=== PATIENT | male | born 1990 | race Caucasian/White ===

== ENCOUNTER 2019-08-07 12:45 | Emergency (ER) | payer BC ==
[2019-08-07 12:50] VITALS: RESP 18; TEMP 99.1
[2019-08-07] MEDS ORDERED: GELATIN SPONGE,ABSORB (LARGE) 1 EACH SPONGE TOPICAL STA (13:33)
--- NOTE | 2019-08-07 14:08 | ED ---
Wound/Laceration HPI - General Chief Complaint: Wound/Laceration Stated Complaint: middle finger tip lac Time Seen by Provider: 08/07/19 13:22 Source: patient Mode of arrival: ambulatory Limitations: no limitations - History of Present Illness Initial Comments: Patient is a 28-year-old male presenting to emergency Department with complaints of a laceration to the tip of his right middle finger. Patient states he was cutting up some cucumbers when he slipped and cut the tip of his finger. Patient's tetanus vaccine is up-to-date. Bleeding is controlled at this time with a bandage. He has no other complaints at this time. Review of Systems ROS Statement: Those systems with pertinent positive or pertinent negative responses have been documented in the HPI. ROS Other: All systems not noted in ROS Statement are negative. Past Medical History Past Medical History: No Reported History History of Any Multi-Drug Resistant Organisms: None Reported Past Surgical History: No Surgical Hx Reported Past Psychological History: No Psychological Hx Reported Smoking Status: Never smoker Past Alcohol Use History: None Reported Past Drug Use History: None Reported General Exam - General Exam Comments Initial Comments: GENERAL: Well-appearing, well-nourished and in no acute distress. HEAD: Atraumatic, normocephalic. EYES: Pupils equal round and reactive to light, extraocular movements intact, sclera anicteric, conjunctiva are normal. ENT: Moist mucous membranes. NECK: Normal range of motion, supple without lymphadenopathy or JVD. LUNGS: Breath sounds clear to auscultation bilaterally and equal. No wheezes rales or rhonchi. HEART: Regular rate and rhythm without murmurs, rubs or gallops. ABDOMEN: Soft, nontender, normoactive bowel sounds. No guarding, no rebound. No masses appreciated. EXTREMITIES: Patient has full range of motion of the right fingers. No swelling. NEUROLOGICAL: Cranial nerves II through XII grossly intact. Normal speech, normal gait. PSYCH: Normal mood, normal affect. SKIN: Warm, Dry, normal turgor, no rashes. Patient has a small avulsion of the tip of the right middle finger, no nail involvement. Bleeding is controlled at this time. Limitations: no limitations Course Vital Signs 08/07/19 08/07/19 12:47 14:22 Temperature 99.1 F 99.1 F Pulse Rate 100 98 Respiratory 18 18 Rate Blood Pressure 149/83 145/87 O2 Sat by Pulse 98 98 Oximetry Medical Decision Making - Medical Decision Making Patient is a 28-year-old male presenting with a small avulsion of the skin at the tip of the right middle finger. No nail involvement. No active bleeding. Patient was cleaned and bandaged with Gelfoam. He will change the dressing daily. Tetanus is up-to-date. He is stable for discharge at this time. Disposition Clinical Impression: Laceration of right middle finger Disposition: HOME SELF-CARE Condition: Stable Instructions (If sedation given, give patient instructions): Laceration (ED) Additional Instructions: Please return to the Emergency Department if symptoms worsen or any other concerns. Change dressing daily with the Gelfoam provided. Keep wound clean and dry. Is patient prescribed a controlled substance at d/c from ED?: No Referrals: None,Stated [Primary Care Provider] - 1-2 days
[2019-08-07 14:23] VITALS: BP 145/87; PULSE 98
== END 2019-08-07 14:24 | disposition home or self-care (01) ==
LOC: EC 12:45
DX: S61.212A Laceration without foreign body of right middle finger without damage to nail, initial encounter (principal); W26.9XXA Contact with unspecified sharp object(s), initial encounter; Y93.89 Activity, other specified
CPT/HCPCS: 99282

== ENCOUNTER 2020-02-26 23:37 | Inpatient (IN) | payer BC ==
--- NOTE | 2020-02-27 00:09 | ED ---
Psych HPI - General Chief Complaint: Psychiatric Symptoms Stated Complaint: Mental health Time Seen by Provider: 02/26/20 23:49 Source: patient Mode of arrival: ambulatory - History of Present Illness Initial Comments: This patient is 29-year-old man with history of mild depression since his teen years, who presents to have evaluation for suicidal ideation. The patient states that he noticed that his mood is been worsening over weeks or so. He has been having more frequent thoughts of taking his own life. Patient currently not receiving any treatment for depression. MD Complaint: suicidal ideation, feels depressed -: days(s) Associated Psychiatric Symptoms: depression History of same: Yes Quality: getting worse Improves With: none Worsens With: none Associated Symptoms: denies other symptoms - Related Data Home Medications Medication Instructions Recorded Confirmed No Known Home Medications 02/27/20 02/27/20 Allergies Allergy/AdvReac Type Severity Reaction Status Date / Time No Known Allergies Allergy Verified 02/27/20 03:45 Review of Systems ROS Statement: Those systems with pertinent positive or pertinent negative responses have been documented in the HPI. ROS Other: All systems not noted in ROS Statement are negative. Constitutional: Denies: fever Respiratory: Denies: cough, dyspnea Cardiovascular: Denies: chest pain, palpitations Gastrointestinal: Denies: abdominal pain, vomiting, diarrhea Genitourinary: Denies: dysuria, hematuria Musculoskeletal: Denies: back pain Skin: Denies: rash Neurological: Denies: headache Psychiatric: Reports: depression, suicidal thoughts. Denies: anxiety, auditory hallucinations, visual hallucinations, homicidal thoughts Past Medical History Past Medical History: No Reported History History of Any Multi-Drug Resistant Organisms: None Reported Past Surgical History: No Surgical Hx Reported Past Psychological History: No Psychological Hx Reported Smoking Status: Current every day smoker Past Alcohol Use History: Occasional Past Drug Use History: Marijuana General Exam Limitations: no limitations General appearance: alert, in no apparent distress Head exam: Present: atraumatic, normocephalic Eye exam: Present: normal appearance. Absent: scleral icterus, conjunctival injection Respiratory exam: Present: normal lung sounds bilaterally. Absent: respiratory distress, wheezes, rales, rhonchi, stridor Cardiovascular Exam: Present: regular rate, normal rhythm, normal heart sounds. Absent: systolic murmur, diastolic murmur, rubs, gallop GI/Abdominal exam: Present: soft. Absent: distended, tenderness, guarding, rebound, rigid, mass Extremities exam: Present: normal inspection, normal capillary refill. Absent: pedal edema, calf tenderness Back exam: Present: normal inspection. Absent: CVA tenderness (R), CVA tenderness (L), vertebral tenderness Neurological exam: Present: alert Psychiatric exam: Present: depressed, suicidal ideation. Absent: agitated, anxious, flat affect, manic, homicidal ideation Skin exam: Present: warm, dry, intact, normal color. Absent: rash Course Vital Signs 02/26/20 23:41 Temperature 99.4 F Pulse Rate 70 Respiratory 20 Rate Blood Pressure 136/85 O2 Sat by Pulse 98 Oximetry Disposition Clinical Impression: Mood disorder Disposition: TRANSFER TO PSYCH HOSP/UNIT Condition: Fair Is patient prescribed a controlled substance at d/c from ED?: No
[2020-02-27] MEDS ORDERED: MAG HYDROX/AL HYDROX/SIMETH 30 ML CUP PO PRN (02:47)
[2020-02-27] MEDS ORDERED: ZIPRASIDONE 20 MG VIAL IM PRN (02:47)
[2020-02-27] MEDS ORDERED: LORazepam 1 MG TAB PO PRN (02:47)
[2020-02-27] MEDS ORDERED: MAGNESIUM HYDROXIDE 2,400 MG/10 ML CUP PO PRN (02:47)
[2020-02-27] MEDS ORDERED: ACETAMINOPHEN TAB 325 MG TAB PO PRN (02:47)
[2020-02-27] MEDS ORDERED: LORazepam 2 MG/ML INJ IM PRN (03:41)
[2020-02-27] MEDS: NICOTINE 14MG/24HR PATCH TRANSDERM SCH ×2 (09:54→14:32)
[2020-02-27] MEDS: OLANZapine 5 MG TAB PO SCH ×2 (14:33→22:23)
[2020-02-27] MEDS: FLUoxetine HCL 20 MG CAP PO SCH (14:33)
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
--- NOTE | 2020-02-27 19:53 | P.CONS ---
History of Present Illness - Reason for Consult Consult date: 02/27/20 - History of Present Illness The patient is a 29-year-old male with a PMH of depression and tobacco abuse who presented to the ED with complaints of suicidal ideation. The patient was admitted to the mental health unit where he was seen and evaluated earlier today. The patient reported feeling better since admission and no further thoughts of suicidal ideation. He reported that he does not have any other medical conditions and does not take any medications including any [id number] is at home. He denied any active complaints during the interview. Denied chest pain, shortness of breath, fever, chills, nausea, vomiting, cough, or abdominal pain. Reported that he smokes one pack per day. Review of Systems Pertinent positives and negatives as discussed in HPI, a complete review of systems was performed and all other systems are negative. Past Medical History Past Medical History: No Reported History History of Any Multi-Drug Resistant Organisms: None Reported Past Surgical History: No Surgical Hx Reported Past Psychological History: No Psychological Hx Reported Smoking Status: Current every day smoker Past Alcohol Use History: Occasional Past Drug Use History: Marijuana Medications and Allergies Home Medications Medication Instructions Recorded Confirmed Type No Known Home Medications 02/27/20 02/27/20 History Allergies Allergy/AdvReac Type Severity Reaction Status Date / Time No Known Allergies Allergy Verified 02/27/20 03:45 Physical Exam Vitals: Vital Signs Temp Pulse Pulse Resp BP BP Pulse Ox 02/27/20 14:20 97.8 F 02/27/20 03:02 97.1 F L 70 14 125/82 99 02/26/20 23:41 99.4 F 70 20 136/85 98 Intake and Output 02/27/20 02/27/20 02/27/20 06:59 14:59 22:59 Other: Weight 93.071 kg General: non toxic, no distress, appears at stated age, overweight Derm: no unusual rashes/lesions no unusual ecchymoses, warm, dry Head: atraumatic, normocephalic, symmetric Eyes: EOMI, no lid lag, anicteric sclera, pupils equal round reactive to light ENT: Nose and ears atraumatic, no thrush, no pharyngeal erythema Neck: No thyromegaly, no cervical lymphadenopathy, trachea midline, supple Mouth: no lip lesion, mucus membranes moist Cardiovascular: S1S2 reg, no murmur, positive posterior tibial pulse bilateral, no edema, capillary refill less than 2 seconds Lungs: CTA bilateral, no rhonchi, no rales , no accessory muscle use Abdominal: soft, nontender to palpation, no guarding, no appreciable organomegaly, normal bowel sounds Ext: no gross muscle atrophy, muscle strength 5 out of 5 in all 4 extremities grossly, no contractures, Neuro: CN II-XI grossly intact, light touch intact all 4 extremities, finger to nose within normal limits, Psych: Alert, oriented, appropriate affect Assessment and Plan Plan: Depression and suicidal ideation -As per psychiatry Tobacco abuse -Nicotine patch when necessary Thank you for allowing us to participate in the care of this patient. We will follow peripherally. Do not hesitate to contact us with questions. Someone can be reached from the [facility] [place] hospitalist group at all hours of the day at [phone].
[2020-02-28 07:49] LABS: Basophils # (A) 0.1 k/uL (0-0.2); Basophils % (A) 1 %; Eosinophils # (A) 0.3 k/uL (0-0.7); Eosinophils % (A) 3 %; HCT 49.2 % (39.0-53.0); HGB 15.9 gm/dL (13.0-17.5); Lymphocytes # (A) 3.9 k/uL (1.0-4.8); Lymphocytes % (A) 41 %; MCH 29.7 pg (25.0-35.0); MCHC 32.3 g/dL (31.0-37.0); Mean Platelet Volume 6.9; Monocytes # (A) 0.4 k/uL (0-1.0); Monocytes % (A) 5 %; Neutrophils # (A) 4.6 k/uL (1.3-7.7); Neutrophils % (A) 49 %; Platelet Count 271 k/uL (150-450); RBC 5.35 m/uL (4.30-5.90); RDW 12.5 % (11.5-15.5); WBC 9.4 k/uL (3.8-10.6)
[2020-02-28 07:57] LABS: ALT 28 U/L (4-49); AST 23 U/L (17-59); African American GFR (CKD) >90 (>60 ml/min/1.73 sqM); Albumin 4.6 g/dL (3.5-5.0); Alkaline Phosphatase 80 U/L (38-126); Anion Gap 7 mmol/L; Bilirubin, Delta 0.3 mg/dL (0.0-0.2); Bilirubin,Unconjugated 0.4 mg/dL (0.0-1.1); Blood Urea Nitrogen 13 mg/dL (9-20); Calcium 9.8 mg/dL (8.4-10.2); Carbon Dioxide 27 mmol/L (22-30); Chloride 107 mmol/L (98-107); Cholesterol 214 mg/dL (<200); Glucose 91 mg/dL (74-99); HDL Cholesterol 34 mg/dL (40-60); LDL Cholesterol,Calculated 153 mg/dL (0-99); Non-African American GFR(CKD) >90 (>60 ml/min/1.73 sqM); Potassium 4.6 mmol/L (3.5-5.1); Sodium 141 mmol/L (137-145); Total Bilirubin 0.7 mg/dL (0.2-1.3); Total Protein 6.9 g/dL (6.3-8.2); Triglycerides 133 mg/dL (<150)
[2020-02-28 08:10] VITALS: RESP 16
[2020-02-28] MEDS: OLANZapine 5 MG TAB PO SCH (10:55)
[2020-02-28] MEDS: NICOTINE 14MG/24HR PATCH TRANSDERM SCH (10:55)
[2020-02-28] MEDS: FLUoxetine HCL 20 MG CAP PO SCH (10:55)
--- NOTE | 2020-02-28 11:41 | P.PN ---
Progress Note - Text Progress Note Date: 02/28/20 Interval History: Patient was seen laying down in his bed today and was directable and agreeable to speak with newspaper writer in the office. Patient appeared to have poor hygiene and claims that his mood has been gradually improving and the medications. He had poor eye contact today. He claims that his anxiety is also been mildly improving. He states that he has not been going to groups however we'll attempt to do so today. He states that he spoke with his yesterday over the phone. He reflected back on the stressors that he had prior to coming into the hospital and his suicidal thoughts. He currently denies having these thoughts at this time. He states that he has a fair appetite. He states that he slept fairly last night. At this time patient denies any suicidal or homical ideations, intent or plan. Patient denies any auditory, visual hallucinations and denies any paranoia or delusions. Patient denies any side effects from the medications and has been compliant with meds. Mental Status Exam: General Appearance: Patient appears to be older than stated age is alert, direct able, and cooperative. Poor hygiene and grooming. Behavior: Patient is calmly seated without any agitated behavior. Speech: Patient's speech is fluent and nonpressured. [place]. Mood/Affect: Mood is improving mildly, affect is congruent and constricted. Suicidality/Homicidality: Patient denies having any suicidal or homicidal ideation intent or plan. Perceptions: Patient denies any visual hallucinations and denies any auditory hallucinations Though content/process: There is no evidence of any delusional thought content and thought process is linear and goal-directed. Memory and concentration: AOX3, grossly intact for the purposes of this session Judgment and insight: Improving mildly Assessment Major depressive disorder, single episode, severe without psychotic features Panic disorder Cannabis use disorder Nicotine dependence Plan: -Patient continues to meet criteria for inpatient psychiatric admission for symptom stabilization and safety. Patient has signed adult voluntary form and medication consent and was placed in patient's chart. -Medications: Discontinued Zyprexa at this time and replaced with trazodone 50 mg daily at bedtime for insomnia/mood. Increased Prozac to 40 mg daily for anxiety/mood. -When necessary Ativan and Geodon for agitation/aggression. -NRT - nicotine patch -SW on board for discharge planning. Encouraged the patient to participate in milieu. Likely discharge in 1-2 days back home.
[2020-02-28 14:30] LABS: Hemoglobin A1C 5.9 % (4.0-6.0)
[2020-02-28] MEDS: traZODone HCL 50 MG TAB PO SCH (21:03)
--- NOTE | 2020-02-29 10:06 | P.PN ---
Progress Note - Text Progress Note Date: 02/29/20 Interval History: Patient was seen laying down in his bed today and was directable and agreeable to speak with principal technical writer in the office. Patient appeared to have a improvement in his affect this morning and mild improvement in his hygiene and grooming. He states that his mood has been doing better and claims that he has been taking his medications and feels that it is "working for me". He claims that he did speak with his over the phone yesterday and claims that "things are going good". Patient did mention that he does have a gun in the house which is unlocked and understands that it needs to be removed. He claims that his anxiety is also been mildly improving. He states that he has not been going to groups however we'll attempt to do so today. He states that he was able to sleep well last night. He states that he has a fair appetite. At this time patient denies any suicidal or homical ideations, intent or plan. Patient denies any auditory, visual hallucinations and denies any paranoia or delusions. Patient denies any side effects from the medications and has been compliant with meds. Mental Status Exam: General Appearance: Patient appears to be older than stated age is alert, directable, and cooperative. Improving hygiene and grooming. Behavior: Patient is calmly seated without any agitated behavior. Speech: Patient's speech is fluent and nonpressured. [place]. Mood/Affect: Mood is improving mildly, affect is congruent and constricted. Suicidality/Homicidality: Patient denies having any suicidal or homicidal ideation intent or plan. Perceptions: Patient denies any visual hallucinations and denies any auditory hallucinations Though content/process: There is no evidence of any delusional thought content and thought process is linear and goal-directed. More future oriented today. Memory and concentration: AOX3, grossly intact for the purposes of this session Judgment and insight: Improving mildly Assessment Major depressive disorder, single episode, severe without psychotic features Panic disorder Cannabis use disorder Nicotine dependence Plan: -Patient continues to meet criteria for inpatient psychiatric admission for symptom stabilization and safety. Patient has signed adult voluntary form and medication consent and was placed in patient's chart. -Medications: Continue with trazodone 50 mg daily at bedtime for insomnia/mood. Continue with Prozac to 40 mg daily for anxiety/mood. -When necessary Ativan and Geodon for agitation/aggression. -NRT - nicotine patch -SW on board for discharge planning. Encouraged the patient to participate in milieu. Likely discharge back home tomorrow. workers compensation attorney to call patient's at home to have the gun removed from the house and to check in with her about any other safety concerns prior to discharge tomorrow.
[2020-02-29] MEDS: NICOTINE 14MG/24HR PATCH TRANSDERM SCH (10:19)
[2020-02-29] MEDS: FLUoxetine HCL 20 MG CAP PO SCH (10:19)
[2020-02-29] MEDS: traZODone HCL 50 MG TAB PO SCH (20:57)
[2020-03-01 06:37] VITALS: BP 132/70; PULSE 68; TEMP 97.6
[2020-03-01] MEDS: FLUoxetine HCL 20 MG CAP PO SCH (09:18)
[2020-03-01] MEDS: NICOTINE 14MG/24HR PATCH TRANSDERM SCH (09:18)
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
== END 2020-03-01 11:00 | disposition home or self-care (01) | DRG 885 ==
LOC: EC 23:37 → 3MHU 02-27 02:38
PROVIDERS: ADMIT Psychiatry & Neurology Psychiatry; ATTEND Psychiatry & Neurology Psychiatry
DX: F32.2 Major depressive disorder, single episode, severe without psychotic features (principal); R45.851 Suicidal ideations; F17.210 Nicotine dependence, cigarettes, uncomplicated; F41.0 Panic disorder [episodic paroxysmal anxiety]; G47.00 Insomnia, unspecified; F12.10 Cannabis abuse, uncomplicated
CPT/HCPCS: 80053; 80061; 82075; 82248; 83036; 84443; 85025; 99285

== ENCOUNTER 2020-06-19 01:22 | Emergency (ER) | payer BC ==
--- NOTE | 2020-06-19 02:22 | ED ---
Psych HPI - General Chief Complaint: Psychiatric Symptoms Stated Complaint: Mental Health Time Seen by Provider: 06/19/20 01:46 Source: patient Mode of arrival: ambulatory - History of Present Illness MD Complaint: suicidal ideation, feels depressed Onset/Timin -: week(s) Associated Psychiatric Symptoms: depression, suicidal ideation History of same: Yes Quality: getting worse Improves With: none Worsens With: none - Related Data Previous Rx's Medication Instructions Recorded FLUoxetine HCL [PROzac] 40 mg PO DAILY 30 Days cap 03/01/20 Nicotine 14Mg/24Hr Patch [Habitrol] 1 patch TRANSDERM DAILY 14 Days 03/01/20 patch traZODone HCL [Desyrel] 50 mg PO HS 30 Days tab 03/01/20 Allergies Allergy/AdvReac Type Severity Reaction Status Date / Time No Known Allergies Allergy Verified 06/19/20 01:29 Review of Systems ROS Statement: Those systems with pertinent positive or pertinent negative responses have been documented in the HPI. ROS Other: All systems not noted in ROS Statement are negative. Constitutional: Denies: fever, chills Respiratory: Denies: cough, dyspnea Cardiovascular: Denies: chest pain, palpitations Gastrointestinal: Denies: abdominal pain, vomiting, diarrhea Genitourinary: Denies: dysuria, hematuria Musculoskeletal: Denies: back pain Neurological: Denies: headache, weakness Psychiatric: Reports: depression, suicidal thoughts. Denies: auditory hallucinations, visual hallucinations, homicidal thoughts Past Medical History Past Medical History: No Reported History History of Any Multi-Drug Resistant Organisms: None Reported Past Surgical History: No Surgical Hx Reported Past Psychological History: Anxiety, Depression Smoking Status: Current every day smoker Past Alcohol Use History: Occasional Past Drug Use History: Marijuana General Exam Limitations: no limitations General appearance: alert, in no apparent distress Head exam: Present: atraumatic, normocephalic Eye exam: Present: normal appearance. Absent: scleral icterus, conjunctival injection Respiratory exam: Present: normal lung sounds bilaterally. Absent: respiratory distress, wheezes, rales, rhonchi, stridor Cardiovascular Exam: Present: regular rate, normal rhythm, normal heart sounds. Absent: systolic murmur, diastolic murmur, rubs, gallop GI/Abdominal exam: Present: soft. Absent: distended, tenderness, guarding, rebound, rigid, mass Extremities exam: Present: normal inspection, normal capillary refill Neurological exam: Present: alert Skin exam: Present: warm, dry, intact, normal color. Absent: rash Course Vital Signs 06/19/20 01:27 Temperature 98.1 F Pulse Rate 67 Respiratory 20 Rate Blood Pressure 144/89 O2 Sat by Pulse 97 Oximetry Disposition Clinical Impression: Mood disorder Disposition: HOME SELF-CARE Condition: Good Instructions (If sedation given, give patient instructions): Mood Disorders (ED) Is patient prescribed a controlled substance at d/c from ED?: No Referrals: lElen Fortune DO [Primary Care Provider] - 1-2 days
[2020-06-19 04:33] VITALS: BP 146/74; PULSE 65; RESP 18; TEMP 97.8
== END 2020-06-19 04:17 | disposition home or self-care (01) ==
LOC: SUPCPDRO 01:22 → EC 01:22
DX: F39 Unspecified mood [affective] disorder (principal); R45.851 Suicidal ideations; F32.9 Major depressive disorder, single episode, unspecified; F17.200 Nicotine dependence, unspecified, uncomplicated
CPT/HCPCS: 82075; 99285

== ENCOUNTER 2021-09-24 18:47 | Emergency (ER) | payer BC ==
[2021-09-24 18:58] VITALS: BP 121/71; PULSE 84; RESP 16; TEMP 97.9
[2021-09-24] MEDS ORDERED: ACETAMINOPHEN TAB 500 MG TAB PO STA (20:26)
[2021-09-24] MEDS ORDERED: ORPHENADRINE 30 MG/ML 2 ML VIAL IM STA (20:26)
[2021-09-24] MEDS ORDERED: KETOROLAC 15 MG/ML 1 ML VIAL IM STA (20:26)
--- NOTE | 2021-09-24 20:47 | ED ---
Back Pain HPI - General Chief Complaint: Back Pain/Injury Stated Complaint: Back pain Time Seen by Provider: 09/24/21 20:22 Source: patient, RN notes reviewed Limitations: no limitations - History of Present Illness Initial Comments: This is a pleasant 31-year-old male who presents emergent parent complaining of low back pain. More in the left side. Patient states he was moving furniture about 3 days ago and strained his back. Patient has had back strains in the past. He denies any problems with bowel movements or urination. No fever or chills. No symptoms of saddle anesthesia. No radicular pain. Pain is sharp, located in left lower back and exacerbated by position and movement. No radiation. No headache, no fever or chills, no changes in vision or hearing, no sore throat or difficulty with speech, no neck pain, no chest pain or shortness of breath, no abdominal pain, no nausea or vomiting, no changes in urination or bowel movements, no numbness or tingling, no extremity pain, no skin rashes or lesions. - Related Data Previous Rx's Medication Instructions Recorded FLUoxetine HCL [PROzac] 40 mg PO DAILY 30 Days cap 03/01/20 Nicotine 14Mg/24Hr Patch [Habitrol] 1 patch TRANSDERM DAILY 14 Days 03/01/20 patch traZODone HCL [Desyrel] 50 mg PO HS 30 Days tab 03/01/20 Acetaminophen [Tylenol] 500 mg PO Q4-6H PRN #24 tab 09/24/21 Cyclobenzaprine [Flexeril] 10 mg PO TID PRN #20 tab 09/24/21 Naproxen [Naprosyn] 375 mg PO Q12HR PRN #20 tablet 09/24/21 Allergies Allergy/AdvReac Type Severity Reaction Status Date / Time No Known Allergies Allergy Verified 09/24/21 18:56 Review of Systems ROS Statement: Those systems with pertinent positive or pertinent negative responses have been documented in the HPI. ROS Other: All systems not noted in ROS Statement are negative. Past Medical History Past Medical History: No Reported History History of Any Multi-Drug Resistant Organisms: None Reported Past Surgical History: No Surgical Hx Reported Past Psychological History: Anxiety, Depression Smoking Status: Vaper Past Alcohol Use History: Occasional Past Drug Use History: Marijuana General Exam Limitations: no limitations General appearance: alert, in distress Head exam: Present: atraumatic, normocephalic, normal inspection Eye exam: Present: normal appearance, PERRL, EOMI. Absent: scleral icterus, conjunctival injection, periorbital swelling ENT exam: Present: normal exam, mucous membranes moist Neck exam: Present: normal inspection. Absent: tenderness, meningismus, lymphadenopathy Respiratory exam: Present: normal lung sounds bilaterally. Absent: respiratory distress, wheezes, rales, rhonchi, stridor Cardiovascular Exam: Present: regular rate, normal rhythm, normal heart sounds. Absent: systolic murmur, diastolic murmur, rubs, gallop, clicks GI/Abdominal exam: Present: soft, normal bowel sounds. Absent: distended, tenderness, guarding, rebound, rigid Extremities exam: Present: normal inspection, full ROM, normal capillary refill. Absent: tenderness, pedal edema, joint swelling, calf tenderness Back exam: Present: normal inspection, tenderness, muscle spasm, paraspinal tenderness, other (Straight leg raise negative bilaterally. Palpable spasm left lumbar area. No midline tenderness. No break in skin integrity. No rash or lesion). Absent: full ROM, CVA tenderness (R), CVA tenderness (L), vertebral tenderness, rash noted Neurological exam: Present: alert, oriented X3, CN II-XII intact, reflexes normal, other (DTRs intact, great toe extensor strength was 5 out of 5. Distal sensation intact). Absent: altered, motor sensory deficit Psychiatric exam: Present: normal affect, normal mood Skin exam: Present: warm, dry, intact, normal color. Absent: rash Course Vital Signs 09/24/21 18:56 Temperature 97.9 F Pulse Rate 84 Respiratory 16 Rate Blood Pressure 121/71 O2 Sat by Pulse 99 Oximetry Medical Decision Making - Medical Decision Making -There are no red flags for concerning back pathology. Specifically: -No history of cancer, this is not a mass effect, MRI not indicated. -No anticoagulation, this is not a bleed. -No fevers, no IVDU, this is not an infectious process. -No trauma, no bony pain, x-rays are not indicated. -With a normal neuro exam, and no urinary or bowel retention or incontinence, there is no clinical sign of motor defect or cauda equina - MRI is not indicated at this point. -No pulsating abdominal mass or risk factors for AAA. -Pain is relieved with rest, which is also less concerning. -I do not believe that x-rays or emergent MRI is indicated at this time. -We will treat symptomatically and discharge home with follow up instructions. Patient was told to return to the ER for any signs or symptoms worsen. Told to return immediately if any other problems arise. All questions answered. Treatment plan discussed. Patient in agreement Every effort has been made to ensure accuracy of this dictation. However, due to the limitations of electronic medical records and dictation devices, errors in charting still occur. Disposition Clinical Impression: Acute lumbar myofascial strain Disposition: HOME SELF-CARE Condition: Stable Instructions (If sedation given, give patient instructions): Acute Low Back Pain (ED) Additional Instructions: Follow-up with your regular physician as directed. Return to the ER immediately if any symptoms worsen, new symptoms arise, or any other problems develop. Is patient prescribed a controlled substance at d/c from ED?: No Referrals: Ellen Fortune DO [REFERRING] - 10/01/21 Time of Disposition: 20:44
== END 2021-09-24 21:08 | disposition home or self-care (01) ==
LOC: EC 18:47
DX: S39.012A Strain of muscle, fascia and tendon of lower back, initial encounter (principal); F32.A Depression, unspecified; F41.9 Anxiety disorder, unspecified; F17.290 Nicotine dependence, other tobacco product, uncomplicated; F12.90 Cannabis use, unspecified, uncomplicated; Z79.899 Other long term (current) drug therapy; X50.0XXA Overexertion from strenuous movement or load, initial encounter
CPT/HCPCS: 99283; 96372 ×2; J2360; J1885

== ENCOUNTER 2022-12-20 14:24 | Emergency (ER) | payer BC ==
[2022-12-20 14:39] VITALS: TEMP 98.2
[2022-12-20 14:59] LABS: Basophils # (A) 0.1 k/uL (0-0.2); Basophils % (A) 1 %; Eosinophils # (A) 0.3 k/uL (0-0.7); Eosinophils % (A) 3 %; HCT 40.3 % (39.0-53.0); HGB 13.7 gm/dL (13.0-17.5); Lymphocytes # (A) 3.1 k/uL (1.0-4.8); Lymphocytes % (A) 33 %; MCH 30.1 pg (25.0-35.0); MCHC 34.1 g/dL (31.0-37.0); MCV 88.4 fL (80.0-100.0); Mean Platelet Volume 6.9; Monocytes # (A) 0.5 k/uL (0-1.0); Monocytes % (A) 5 %; Neutrophils # (A) 5.4 k/uL (1.3-7.7); Neutrophils % (A) 57 %; Platelet Count 327 k/uL (150-450); RBC 4.56 m/uL (4.30-5.90); RDW 12.3 % (11.5-15.5); WBC 9.4 k/uL (3.8-10.6)
--- NOTE | 2022-12-20 15:12 | ED ---
Chest Pain HPI - General Source: patient Mode of arrival: ambulatory Limitations: no limitations <Orin Walker - Last Filed: 12/20/22 15:06> <Edin Paris - Last Filed: 12/20/22 17:12> - General Chief Complaint: Chest Pain Stated Complaint: Chest pain;sob Time Seen by Provider: 12/20/22 15:12 - History of Present Illness Initial Comments: Patient is a 32-year-old male presenting to the emergency room with complaints of chest pain which is tightening in nature on the left side. He reports that the pain began last night and has instituted today. He reports that he is having difficulty taking in a deep breath and the pain worsens with deep breath or cough. The pain is also reproducible by pushing on his chest wall. He is complaining of some dizziness and nausea without vomiting that began this morning which she was not having last night. He denies any other associated symptoms including any shortness of breath not related to inability to take in a deep breath, abdominal pain, diarrhea, diaphoresis, headache, fevers or chills. He is a smoker but denies any other cardiovascular risk factors including any high blood pressure, high cholesterol or the family history of coronary artery disease under the age of 55. (Orin Walker) Dictation was produced using [employer] dictation software. please excuse any grammatical, word or spelling errors. Chief Complaint: 32-year-old male presents with chest pain History of Present Illness: That he 2-year-old male with no past medical history presents emergency Department with 2 days of chest pain. Does report associated shortness of breath. Recently deep inspiration and turning. Patient does com mute an hour and half each way to work. Denies any lower extremity pain. No history of blood clots. No history of cardiac disease. The ROS documented in this emergency department record has been reviewed and confirmed by me. Those systems with pertinent positive or negative responses have been documented in the HPI. All other systems are other negative and/or noncontributory. (Edin Paris) - Related Data Previous Rx's Medication Instructions Recorded FLUoxetine HCL [PROzac] 40 mg PO DAILY 30 Days cap 03/01/20 Nicotine 14Mg/24Hr Patch [Habitrol] 1 patch TRANSDERM DAILY 14 Days 03/01/20 patch traZODone HCL [Desyrel] 50 mg PO HS 30 Days tab 03/01/20 Acetaminophen [Tylenol] 500 mg PO Q4-6H PRN #24 tab 09/24/21 Cyclobenzaprine [Flexeril] 10 mg PO TID PRN #20 tab 09/24/21 Naproxen [Naprosyn] 375 mg PO Q12HR PRN #20 tablet 09/24/21 Allergies Allergy/AdvReac Type Severity Reaction Status Date / Time No Known Allergies Allergy Verified 12/20/22 14:39 Review of Systems ROS Other: All systems not noted in ROS Statement are negative. <Orin Walker - Last Filed: 12/20/22 15:06> ROS Other: All systems not noted in ROS Statement are negative. <Edin Paris - Last Filed: 12/20/22 17:12> ROS Statement: Those systems with pertinent positive or pertinent negative responses have been documented in the HPI. Past Medical History Past Medical History: No Reported History History of Any Multi-Drug Resistant Organisms: None Reported Past Surgical History: No Surgical Hx Reported Past Psychological History: Anxiety, Depression Smoking Status: Vaper Past Alcohol Use History: Occasional Past Drug Use History: Marijuana <Orin Walker - Last Filed: 12/20/22 15:06> General Exam Limitations: no limitations <Orin Walker - Last Filed: 12/20/22 15:06> <Edin Paris - Last Filed: 12/20/22 17:12> - General Exam Comments Initial Comments: Visual Physical Exam Vital signs reviewed General: Well-appearing, nontoxic, no acute distress. Head: Normocephalic, atraumatic Eyes: PERRLA, EOMI ENT: Airway patent Chest: Nonlabored breathing Skin: No visual rash, normal skin tone Neuro: Alert and oriented 3 Musculoskeletal: No gross abnormalities (Orin Walker) PHYSICAL EXAM: General Impression: Alert and oriented x3, not in acute distress HEENT: Normocephalic atraumatic, extra-ocular movements intact, pupils equal and reactive to light bilaterally, mucous membranes moist. Cardiovascular: Heart regular rate and rhythm Chest: Able to complete full sentences, no retractions, no tachypnea, reproducible left anterior chest pain with twisting Abdomen: abdomen soft, non-tender, non-distended, no organomegaly Musculoskeletal: Pulses present and equal in all extremities, no peripheral edema Motor: no focal deficits noted Neurological: CN II-XII grossly intact, no focal motor or sensory deficits noted Skin: Intact with no visualized rashes Psych: Normal affect and mood (Edin Paris) Course Vital Signs 12/20/22 12/20/22 14:37 16:17 Temperature 98.2 F Pulse Rate 72 71 Respiratory 18 20 Rate Blood Pressure 130/80 129/77 O2 Sat by Pulse 99 97 Oximetry Chest Pain [facility] <Edin Paris - Last Filed: 12/20/22 17:12> - [facility] My EKG interpretation: Ventricular rate 74, sinus rhythm,. 126, care swal lowing, QTc 412. No NM prolongation, no QTC prolongation, no ST or T-wave changes noted. Overall, this EKG is unremarkable Was pt. sent in by a medical professional or institution (, PA, RAILROAD CAR REPAIRMAN, urgent care, hospital, or residential...) When possible be specific @ -No Did you speak to anyone other than the patient for history (EMS, parent, family, police, friend...)? What history was obtained from this source @ -Bedside states the patient has chest pain Did you review nursing and triage notes (agree or disagree)? Why? @ -I reviewed and agree with nursing and triage notes Were old charts reviewed (outside hosp., previous admission, EMS record, old EKG, old radiological studies, urgent care reports/EKG's, residential records)? Report findings @ -No old charts were reviewed Differential Diagnosis (chest pain, altered mental status, abdominal pain women, abdominal pain men, vaginal bleeding, musculoskeletal, weakness, fever, dyspnea, syncope, headache, dizziness, GI bleed, back pain, seizure, CVA, palpatations, mental health)? @ -Differential Chest Pain: Stable Angina, Unstable Angina, STEMI, NSTEMI Aortic Dissection, Pneumothorax, Musculoskeletal, Esophageal Spasm GERD, Cholecystitis, Pancreatitis, Zoster, this is not meant to be an all-inclusive list. EKG interpreted by me (3pts min.). @ -see above X-rays interpreted by me (1pt min.). @ -Chest x-ray is unremarkable CT interpreted by me (1pt min.). @ -None done U/S interpreted by me (1pt. min.). @ -None done What testing was considered but not performed or refused? (CT, X-rays, U/S, labs)? Why? @ -None What meds were considered but not given or refused? Why? @ -None Did you discuss the management of the patient with other professionals (professionals i.e. Dr., PA, RAILROAD CAR REPAIRMAN, lab, RT, psych nurse, social sciences professor, metal window screen assembler, teacher, port patrol officer, case management assistant)? Give summary @ -No Was smoking cessation discussed for >3mins.? @ -No Was critical care preformed (if so, how long)? @ -No Were there social determinants of health that impacted care today? How? (Homelessness, low income, unemployed, alcoholism, drug addiction, transportation, low edu. Level, literacy, decrease access to med. care, [facility]ci, rehab)? @ -No Was there de-escalation of care discussed even if they declined (Discuss DNR or withdrawal of care, Hospice)? DNR status @ -No What co-morbidities impacted this encounter? (DM, HTN, Smoking, COPD, CAD, Cancer, CVA, ARF, Chemo, Hep., AIDS, mental health diagnosis, sleep apnea, morbid obesity)? @ -None Was patient admitted / discharged? Hospital course, mention meds given and route, prescriptions, significant lab abnormalities, going to OR and other pertinent info. @ -32-year-old male presents emergency department for atypical chest pain. Vital signs are stable. EKG is unremarkable. Chest x-ray is unremarkable. Labs including troponin and d-dimer unremarkable. Patient will be discharged. Undiagnosed new problem with uncertain prognosis? @ -No Drug Therapy requiring intensive monitoring for toxicity (Heparin, Nitro, Insulin, Cardizem)? @ -No Were any procedures done? @ -No Diagnosis/symptom? Acute, or Chronic, or Acute on Chronic? Uncomplicated (without systemic symptoms) or Complicated (systemic symptoms)? @ -. 1. Chest strain Side effects of treatment? @ -No Exacerbation, Progression, or Severe Exacerbation? @ -No Poses a threat to life or bodily function? How? (Chest pain, [place], [place], pneumonia, PE, COPD, DKA, ARF, appy, cholecystitis, CVA, Diverticulitis, Homicidal, Suicidal, threat to staff... and all critical care pts) @ -No (Edin Paris) Disposition <Orin Walker - Last Filed: 12/20/22 15:06> Is patient prescribed a controlled substance at d/c from ED?: No Time of Disposition: 17:00 <Edin Paris - Last Filed: 12/20/22 17:12> Clinical Impression: Chest pain Disposition: HOME SELF-CARE Condition: Good Instructions (If sedation given, give patient instructions): Costochondritis (ED) Referrals: Eugene Munoz MD [Primary Care Provider] - 1-2 days
[2022-12-20 15:14] LABS: INR 0.9 (<1.2); Partial Thromboplastin Time 25.8 sec (22.0-30.0); Prothrombin Time 9.9 sec (9.0-12.0)
[2022-12-20 15:36] LABS: ALT 26 U/L (4-49); AST 22 U/L (17-59); African American GFR (CKD) >90 (>60 ml/min/1.73 sqM); Albumin 4.5 g/dL (3.5-5.0); Alkaline Phosphatase 80 U/L (38-126); Anion Gap 11 mmol/L; Blood Urea Nitrogen 15 mg/dL (9-20); Calcium 9.3 mg/dL (8.4-10.2); Carbon Dioxide 26 mmol/L (22-30); Chloride 102 mmol/L (98-107); Glucose 104 mg/dL (74-99); Non-African American GFR(CKD) 85 (>60 ml/min/1.73 sqM); Potassium 4.1 mmol/L (3.5-5.1); Sodium 139 mmol/L (137-145); Total Bilirubin 0.4 mg/dL (0.2-1.3)
--- NOTE | 2022-12-20 16:03 | XR ---
EXAMINATION TYPE: XR chest 2V DATE OF EXAM: 12/20/2022 COMPARISON: None HISTORY: 32-year-old male with chest pain and shortness of breath TECHNIQUE: PA and lateral views FINDINGS: The cardiomediastinal silhouette, aorta, and pulmonary vasculature are within normal limits. Lungs an d pleural spaces are clear. IMPRESSION: No acute cardiopulmonary process.
[2022-12-20] MEDS ORDERED: LIDOCAINE 5% PATCH TOPICAL STA (16:17)
[2022-12-20] MEDS ORDERED: traMADol 50 MG STARTER PACK 3 TAB BTL PO STA (17:09)
[2022-12-20] MEDS ORDERED: HYDROcodone/APAP 5-325MG 1 EACH TAB PO STA (17:09)
[2022-12-20 17:46] VITALS: BP 123/84; PULSE 78; RESP 18
== END 2022-12-20 17:48 | disposition home or self-care (01) ==
LOC: EC 14:24
DX: R07.9 Chest pain, unspecified (principal); Z86.59 Personal history of other mental and behavioral disorders; F17.290 Nicotine dependence, other tobacco product, uncomplicated; F12.90 Cannabis use, unspecified, uncomplicated
CPT/HCPCS: 36415; 71046; 80053; 83735; 84484; 85025; 85379; 85610; 85730; 93005; 99285

== ENCOUNTER 2024-01-26 04:50 | Emergency (ER) | payer BC ==
--- NOTE | 2024-01-26 05:16 | ED ---
General Adult HPI - General Chief complaint: Chest Pain Stated complaint: Chest Pain, Difficulty Breathing Time Seen by Provider: 01/26/24 04:59 Source: patient, RN notes reviewed, old records reviewed Mode of arrival: ambulatory Limitations: no limitations - History of Present Illness Initial comments: Patient is a 33-year-old male with no significant past medical history presents emergency department complaining of sudden onset right-sided chest pain. Worse with deep inspiration. Denies any nausea or vomiting or diaphoresis. Endorses a history of anxiety. Denies any left-sided chest pain. States he was driving to work and ready when this started. No cardiac history for himself or family members. Presents for further evaluation at this time. Denies any lower extremity edema. Denies any recent long distance travel. - Related Data Previous Rx's Medication Instructions Recorded FLUoxetine HCL [PROzac] 40 mg PO DAILY 30 Days cap 03/01/20 Nicotine 14Mg/24Hr Patch [Habitrol] 1 patch TRANSDERM DAILY 14 Days 03/01/20 patch traZODone HCL [Desyrel] 50 mg PO HS 30 Days tab 03/01/20 Acetaminophen [Tylenol] 500 mg PO Q4-6H PRN #24 tab 09/24/21 Cyclobenzaprine [Flexeril] 10 mg PO TID PRN #20 tab 09/24/21 Naproxen [Naprosyn] 375 mg PO Q12HR PRN #20 tablet 09/24/21 LORazepam [Ativan] 0.5 mg PO BID PRN 3 Days #6 tab 01/26/24 Allergies Allergy/AdvReac Type Severity Reaction Status Date / Time No Known Allergies Allergy Verified 01/26/24 04:54 Review of Systems ROS Statement: Those systems with pertinent positive or pertinent negative responses have been documented in the HPI. Review of Systems: CONST: Denies fever EYES: Denies blurry vision ENT: Denies nasal congestion C/V: Endorses chest pain RESP: Denies shortness of breath GI: Denies abdominal pain : Denies dysuria SKIN: Denies rash. MSK: Denies joint pain. NEURO: Denies headache ROS Other: All systems not noted in ROS Statement are negative. Past Medical History Past Medical History: No Reported History History of Any Multi-Drug Resistant Organisms: None Reported Past Surgical History: No Surgical Hx Reported Past Psychological History: Anxiety, Depression Smoking Status: Vaper Past Alcohol Use History: Occasional Past Drug Use History: Marijuana General Exam - General Exam Comments Initial Comments: General: Appears in mild distress secondary to chest pain. HEAD: Normal with no signs of head trauma. EYES: PERRLA, EOMI, conjunctiva normal, no discharge. ENT: Hearing grossly intact, normal oropharynx. RESPIRATORY: Clear breath sounds bilaterally. No wheezes, rales, or rhonchi. C/V: Regular rate and rhythm. S1 and S2 auscultated, no edema, peripheral pulses 2+ and intact throughout ABD: Abd is soft, nontender, nondistended EXT: Normal range of motion, no obvious deformity SKIN: No rashes or lesions observed on exposed skin. NEURO: Alert and oriented x 4. Limitations: no limitations Course Vital Signs 01/26/24 01/26/24 01/26/24 04:52 05:30 06:00 Temperature 98 F Pulse Rate 91 71 Respiratory 18 16 13 Rate Blood Pressure 120/89 127/85 O2 Sat by Pulse 97 97 Oximetry Medical Decision Making - Medical Decision Making Was pt. sent in by a medical professional or institution (, PA, BACK TENDER, urgent ca re, hospital, or usp...) When possible be specific @ -No Did you speak to anyone other than the patient for history (EMS, parent, family, police, friend...)? What history was obtained from this source @ -No Did you review nursing and triage notes (agree or disagree)? Why? @ -I reviewed and agree with nursing and triage notes Were old charts reviewed (outside hosp., previous admission, EMS record, old EKG, old radiological studies, urgent care reports/EKG's, usp records)? Report findings @ -Old chart reviewed from December 2022, including EKG. No significant change of EKG from that time. Differential Diagnosis (chest pain, altered mental status, abdominal pain women, abdominal pain men, vaginal bleeding, weakness, fever, dyspnea, syncope, headache, dizziness, GI bleed, back pain, seizure, CVA, palpatations, mental health, musculoskeletal)? @ -Differential Chest Pain: Stable Angina, Unstable Angina, STEMI, NSTEMI Aortic Dissection, Pneumothorax, Musculoskeletal, Esophageal Spasm GERD, Cholecystitis, Pancreatitis, Zoster, this is not meant to be an all-inclusive list. EKG interpreted by me (3pts min.). @ -As above X-rays interpreted by me (1pt min.). @ -Chest x-ray reveals no obvious acute cardiopulmonary process. CT interpreted by me (1pt min.). @ -None done U/S interpreted by me (1pt. min.). @ -None done What testing was considered but not performed or refused? (CT, X-rays, U/S, labs)? Why? @ -None What meds were considered but not given or refused? Why? @ -None Did you discuss the management of the patient with other professionals (professionals i.e. , PA, BACK TENDER, lab, RT, psych nurse, social media strategist, creative services director, teacher, booking police officer, director of casework department)? Give summary @ -No Was smoking cessation discussed for >3mins.? @ -No Was critical care preformed (if so, how long)? @ -No Were there social determinants of health that impacted care today? How? (Homelessness, low income, unemployed, alcoholism, drug addiction, transportation, low edu. Level, literacy, decrease access to med. care, halfway, rehab)? @ -No Was there de-escalation of care discussed even if they declined (Discuss DNR or withdrawal of care, Hospice)? DNR status @ -No What co-morbidities impacted this encounter? (DM, HTN, Smoking, COPD, CAD, Cancer, CVA, ARF, Chemo, Hep., AIDS, mental health diagnosis, sleep apnea, morbid obesity)? @ -None Was patient admitted / discharged? Hospital course, mention meds given and route, prescriptions, significant lab abnormalities, going to OR and other pertinent info. @ -Patient presents with atypical right-sided chest pain. Mild associated shortness of breath with it. Vital signs within acceptable limits. Will obtain cardiac workup. Patient will be given morphine as well as IV fluids at this time. Patient was in agreement this plan. Vital signs within acceptable limits. EKG shows no signs of acute ischemia.Patient's laboratory studies returned unremarkable. Patient's troponin, D-dimer both undetectable. Remainder the workup unremarkable. On reevaluation, patient's symptoms have completely resolved. He states that the Ativan seems to have helped the most. We both think that it is likely he was having a panic attack with his history of anxiety. I will provide him with a short course of Ativan for home with strict return precautions as needed. He was in agreement this plan. Vital signs within acceptable limits on discharge. He was given a work note.Patient's heart score is low at 0.. I will provide the patient with a prescription for Ativan. I instructed the patient to follow up with their PCP in the next 1-3 days.. I explained that the patient should return to the emergency department if they experience any worsening symptoms. Strict return precautions were discussed with the patient. The patient expressed understanding of these instructions. I answered all questions that the patient had. The patient was discharged home in good condition with their prescriptions and follow up information. Undiagnosed new problem with uncertain prognosis? @ -No Drug Therapy requiring intensive monitoring for toxicity (Heparin, Nitro, Insulin, Cardizem)? @ -No Were any procedures done? @ -No Diagnosis/symptom? @ -Atypical chest pain, panic attack Acute, or Chronic, or Acute on Chronic? @ -Acute Uncomplicated (without systemic symptoms) or Complicated (systemic symptoms)? @ -Complicated Side effects of treatment? @ -None Exacerbation, Progression, or Severe Exacerbation] @ -No Poses a threat to life or bodily function? @ -Unlikely - Lab Data Result diagrams: 01/26/24 05:20 01/26/24 05:20 Lab Results 01/26/24 01/26/24 01/26/24 Range/Units 05:20 05:20 05:20 WBC 8.3 (3.8-10.6) k/uL RBC 4.80 (4.30-5.90) m/uL Hgb 14.6 (13.0-17.5) gm/dL Hct 43.9 (39.0-53.0) % MCV 91.3 (80.0-100.0) fL MCH 30.4 (25.0-35.0) pg MCHC 33.2 (31.0-37.0) g/dL RDW 12.3 (11.5-15.5) % Plt Count 299 (150-450) k/uL MPV 7.2 Neutrophils % 56 % Lymphocytes % 32 % Monocytes % 7 % Eosinophils % 3 % Basophils % 1 % Neutrophils # 4.7 (1.3-7.7) k/uL Lymphocytes # 2.6 (1.0-4.8) k/uL Monocytes # 0.6 (0-1.0) k/uL Eosinophils # 0.2 (0-0.7) k/uL Basophils # 0.1 (0-0.2) k/uL PT 10.5 (10.0-12.5) sec INR 0.9 (<1.2) APTT 27.2 (22.0-30.0) sec D-Dimer <0.17 (<0.60) mg/L FEU Sodium 138 (137-145) mmol/L Potassium 4.4 (3.5-5.1) mmol/L Chloride 108 H (98-107) mmol/L Carbon Dioxide 18 L (22-30) mmol/L Anion Gap 12 mmol/L BUN 9 (9-20) mg/dL Creatinine 0.85 (0.66-1.25) mg/dL Est GFR (CKD-EPI)AfAm >90 (>60 ml/min/1.73 sqM) Est GFR (CKD-EPI)NonAf >90 (>60 ml/min/1.73 sqM) Glucose 118 H (74-99) mg/dL Calcium 9.5 (8.4-10.2) mg/dL Magnesium 2.0 (1.6-2.3) mg/dL Total Bilirubin 1.0 (0.2-1.3) mg/dL AST 23 (17-59) U/L ALT 15 (4-49) U/L Alkaline Phosphatase 76 (38-126) U/L Troponin I (0.000-0.034) ng/mL NT-Pro-B Natriuret Pep 66 pg/mL Total Protein 6.9 (6.3-8.2) g/dL Albumin 4.7 (3.5-5.0) g/dL Lipase 108 (23-300) U/L 01/26/24 Range/Units 05:20 WBC (3.8-10.6) k/uL RBC (4.30-5.90) m/uL Hgb (13.0-17.5) gm/dL Hct (39.0-53.0) % MCV (80.0-100.0) fL MCH (25.0-35.0) pg MCHC (31.0-37.0) g/dL RDW (11.5-15.5) % Plt Count (150-450) k/uL MPV Neutrophils % % Lymphocytes % % Monocytes % % Eosinophils % % Basophils % % Neutrophils # (1.3-7.7) k/uL Lymphocytes # (1.0-4.8) k/uL Monocytes # (0-1.0) k/uL Eosinophils # (0-0.7) k/uL Basophils # (0-0.2) k/uL PT (10.0-12.5) sec INR (<1.2) APTT (22.0-30.0) sec D-Dimer (<0.60) mg/L FEU Sodium (137-145) mmol/L Potassium (3.5-5.1) mmol/L Chloride (98-107) mmol/L Carbon Dioxide (22-30) mmol/L Anion Gap mmol/L BUN (9-20) mg/dL Creatinine (0.66-1.25) mg/dL Est GFR (CKD-EPI)AfAm (>60 ml/min/1.73 sqM) Est GFR (CKD-EPI)NonAf (>60 ml/min/1.73 sqM) Glucose (74-99) mg/dL Calcium (8.4-10.2) mg/dL Magnesium (1.6-2.3) mg/dL Total Bilirubin (0.2-1.3) mg/dL AST (17-59) U/L ALT (4-49) U/L Alkaline Phosphatase (38-126) U/L Troponin I <0.012 (0.000-0.034) ng/mL NT-Pro-B Natriuret Pep pg/mL Total Protein (6.3-8.2) g/dL Albumin (3.5-5.0) g/dL Lipase (23-300) U/L - EKG Data -: EKG Interpreted by Me EKG Comments: 12-lead Electrocardiogram Interpretation Note EKG was reviewed and interpreted by myself. 12-lead ECG performed at 0459 is interpreted by me as revealing normal sinus rhythm at a rate of 87 beats per minute. [place] is normal. NM interval is 132 ms, QRS durations 106 ms, QTc is 3 91 ms.. There were no ST or T wave abnormalities to suggest myocardial ischemia or injury. R wave progression across the precordium was satisfactory. By my interpretation this EKG is non-diagnostic for acute ischemia. Compared with EKG from December 20, 2022. No significant change. Disposition Clinical Impression: Atypical chest pain, Panic attack Disposition: HOME SELF-CARE Condition: Good Instructions (If sedation given, give patient instructions): Chest Pain (ED), Panic Attack (ED) Prescriptions: LORazepam [Ativan] 0.5 mg PO BID PRN 3 Days #6 tab PRN Reason: Anxiety Is patient prescribed a controlled substance at d/c from ED?: Yes Referrals: Ellen Fortune DO [Primary Care Provider] - 1-2 days Time of Disposition: 06:59
[2024-01-26] MEDS: SODIUM CHLORIDE 0.9% 1,000 ML IV STA (05:20)
[2024-01-26] MEDS: MORPHINE SULFATE 2 MG/ML SYRINGE IVP STA (05:27)
[2024-01-26] MEDS: LORazepam 2 MG/ML INJ IV STA (05:43)
[2024-01-26 05:48] LABS: Basophils # (A) 0.1 k/uL (0-0.2); Basophils % (A) 1 %; Eosinophils # (A) 0.2 k/uL (0-0.7); Eosinophils % (A) 3 %; HCT 43.9 % (39.0-53.0); HGB 14.6 gm/dL (13.0-17.5); Lymphocytes # (A) 2.6 k/uL (1.0-4.8); Lymphocytes % (A) 32 %; MCH 30.4 pg (25.0-35.0); MCHC 33.2 g/dL (31.0-37.0); MCV 91.3 fL (80.0-100.0); Mean Platelet Volume 7.2; Monocytes # (A) 0.6 k/uL (0-1.0); Monocytes % (A) 7 %; Neutrophils # (A) 4.7 k/uL (1.3-7.7); Neutrophils % (A) 56 %; Platelet Count 299 k/uL (150-450); RDW 12.3 % (11.5-15.5); WBC 8.3 k/uL (3.8-10.6)
--- NOTE | 2024-01-26 06:02 | XR ---
EXAMINATION TYPE: XR chest 2V DATE OF EXAM: 01/26/2024 COMPARISON: Chest x-ray December 20, 2022 HISTORY: Chest pain TECHNIQUE: Frontal and lateral views of the chest are obtained. FINDINGS: There is no focal air space opacity, pleural effusion, or pneumothorax seen. The cardiac silhouette size is stable and within normal limits. Underlying scoliotic curvature is present . IMPRESSION: No acute cardiopulmonary process.
[2024-01-26 06:04] LABS: INR 0.9 (<1.2); Partial Thromboplastin Time 27.2 sec (22.0-30.0); Prothrombin Time 10.5 sec (10.0-12.5)
[2024-01-26 06:23] LABS: ALT 15 U/L (4-49); AST 23 U/L (17-59); African American GFR (CKD) >90 (>60 ml/min/1.73 sqM); Albumin 4.7 g/dL (3.5-5.0); Alkaline Phosphatase 76 U/L (38-126); Anion Gap 12 mmol/L; Blood Urea Nitrogen 9 mg/dL (9-20); Calcium 9.5 mg/dL (8.4-10.2); Carbon Dioxide 18 mmol/L (22-30); Chloride 108 mmol/L (98-107); Glucose 118 mg/dL (74-99); Lipase 108 U/L (23-300); Non-African American GFR(CKD) >90 (>60 ml/min/1.73 sqM); Potassium 4.4 mmol/L (3.5-5.1); Sodium 138 mmol/L (137-145); Total Protein 6.9 g/dL (6.3-8.2)
[2024-01-26 06:31] LABS: NT-Pro-B-Type Natriuretic Pept 66 pg/mL
[2024-01-26 07:12] VITALS: BP 117/77; PULSE 70; RESP 18; TEMP 98
== END 2024-01-26 07:11 | disposition home or self-care (01) ==
LOC: EC 04:50
DX: F41.0 Panic disorder [episodic paroxysmal anxiety] (principal); F17.290 Nicotine dependence, other tobacco product, uncomplicated
CPT/HCPCS: 36415; 93005; 85379; 83880; 80053; 83690; 83735; 84484; 85025; 85610; 85730; 71046; 99285; 96374; 96375; 96361; J2060; J2270

== ENCOUNTER 2024-02-10 12:46 | Emergency (ER) | payer BC ==
[2024-02-10 12:53] VITALS: BP 128/69; RESP 18
--- NOTE | 2024-02-10 13:03 | ED ---
Dizziness HPI - General Chief Complaint: Syncope Stated Complaint: SYNCOPE Time Seen by Provider: 02/10/24 13:00 Source: patient, EMS, RN notes reviewed Mode of arrival: EMS Limitations: no limitations - History of Present Illness Initial Comments: Quick Note: This is a 33-year-old male who presents to the emergency department for dizziness and a near syncopal episode at work. 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 He started to become very pale, diaphoretic, and nauseous. EMS was called and they gave the patient IV fluids and Zofran. States that this was helpful. He does still feel somewhat dizzy and states that his extremities are tingly. Denies any chest pain or shortness of breath. MD Complaint: dizziness, near syncope - Related Data Previous Rx's Medication Instructions Recorded FLUoxetine HCL [PROzac] 40 mg PO DAILY 30 Days cap 03/01/20 Nicotine 14Mg/24Hr Patch [Habitrol] 1 patch TRANSDERM DAILY 14 Days 03/01/20 patch traZODone HCL [Desyrel] 50 mg PO HS 30 Days tab 03/01/20 Acetaminophen [Tylenol] 500 mg PO Q4-6H PRN #24 tab 09/24/21 Cyclobenzaprine [Flexeril] 10 mg PO TID PRN #20 tab 09/24/21 Naproxen [Naprosyn] 375 mg PO Q12HR PRN #20 tablet 09/24/21 LORazepam [Ativan] 0.5 mg PO BID PRN 3 Days #6 tab 01/26/24 Allergies Allergy/AdvReac Type Severity Reaction Status Date / Time No Known Allergies Allergy Verified 02/10/24 12:53 Review of Systems ROS Statement: Those systems with pertinent positive or pertinent negative responses have been documented in the HPI. ROS Other: All systems not noted in ROS Statement are negative. Past Medical History Past Medical History: No Reported History Additional Past Medical History / Comment(s): depression History of Any Multi-Drug Resistant Organisms: None Reported Past Surgical History: No Surgical Hx Reported Past Psychological History: Anxiety, Depression Smoking Status: Current every day smoker, Vaper Past Alcohol Use History: Rare Past Drug Use History: Marijuana General Exam - General Exam Comments Initial Comments: Visual Physical Exam Vital signs reviewed General: Well-appearing, nontoxic, no acute distress. Head: Normocephalic, atraumatic Eyes: PERRLA, EOMI ENT: Airway patent Chest: Nonlabored breathing Skin: No visual rash, normal skin tone Neuro: Alert and oriented 3 Musculoskeletal: No gross abnormalities Limitations: no limitations Course Vital Signs 02/10/24 02/10/24 12:49 14:18 Temperature 98.2 F 98.1 F Pulse Rate 97 80 Respiratory 18 18 Rate Blood Pressure 128/69 O2 Sat by Pulse 100 99 Oximetry Medical Decision Making - Medical Decision Making I performed the QuickNote portion of this chart. Signed Cass Painter PA-C. Patient left AMA from the waiting room prior to full evaluation as well as completion and review of ordered testing. - Lab Data Result diagrams: 02/10/24 13:03 02/10/24 13:03 Lab Results 02/10/24 02/10/24 02/10/24 Range/Units 13:03 13:03 13:03 WBC 10.8 H (3.8-10.6) k/uL RBC 4.42 (4.30-5.90) m/uL Hgb 13.7 (13.0-17.5) gm/dL Hct 37.8 L (39.0-53.0) % MCV 85.4 D (80.0-100.0) fL MCH 31.1 (25.0-35.0) pg MCHC 36.4 (31.0-37.0) g/dL RDW 11.7 (11.5-15.5) % Plt Count 512 H (150-450) k/uL MPV 6.9 Neutrophils % 71 % Lymphocytes % 19 % Monocytes % 7 % Eosinophils % 1 % Basophils % 1 % Neutrophils # 7.6 (1.3-7.7) k/uL Lymphocytes # 2.1 (1.0-4.8) k/uL Monocytes # 0.8 (0-1.0) k/uL Eosinophils # 0.1 (0-0.7) k/uL Basophils # 0.1 (0-0.2) k/uL PT 11.2 (10.0-12.5) sec INR 1.0 (<1.2) APTT 25.7 (22.0-30.0) sec Sodium 135 L (137-145) mmol/L Potassium 3.9 (3.5-5.1) mmol/L Chloride 106 (98-107) mmol/L Carbon Dioxide 14 L (22-30) mmol/L Anion Gap 15 mmol/L BUN 9 (9-20) mg/dL Creatinine 0.70 (0.66-1.25) mg/dL Est GFR (CKD-EPI)AfAm >90 (>60 ml/min/1.73 sqM) Est GFR (CKD-EPI)NonAf >90 (>60 ml/min/1.73 sqM) Glucose 102 H (74-99) mg/dL Calcium 9.3 (8.4-10.2) mg/dL Total Bilirubin 1.5 H (0.2-1.3) mg/dL AST 35 (17-59) U/L ALT 28 (4-49) U/L Alkaline Phosphatase 116 (38-126) U/L Troponin I (0.000-0.034) ng/mL Total Protein 7.3 (6.3-8.2) g/dL Albumin 4.5 (3.5-5.0) g/dL 02/10/24 Range/Units 13:03 WBC (3.8-10.6) k/uL RBC (4.30-5.90) m/uL Hgb (13.0-17.5) gm/dL Hct (39.0-53.0) % MCV (80.0-100.0) fL MCH (25.0-35.0) pg MCHC (31.0-37.0) g/dL RDW (11.5-15.5) % Plt Count (150-450) k/uL MPV Neutrophils % % Lymphocytes % % Monocytes % % Eosinophils % % Basophils % % Neutrophils # (1.3-7.7) k/uL Lymphocytes # (1.0-4.8) k/uL Monocytes # (0-1.0) k/uL Eosinophils # (0-0.7) k/uL Basophils # (0-0.2) k/uL PT (10.0-12.5) sec INR (<1.2) APTT (22.0-30.0) sec Sodium (137-145) mmol/L Potassium (3.5-5.1) mmol/L Chloride (98-107) mmol/L Carbon Dioxide (22-30) mmol/L Anion Gap mmol/L BUN (9-20) mg/dL Creatinine (0.66-1.25) mg/dL Est GFR (CKD-EPI)AfAm (>60 ml/min/1.73 sqM) Est GFR (CKD-EPI)NonAf (>60 ml/min/1.73 sqM) Glucose (74-99) mg/dL Calcium (8.4-10.2) mg/dL Total Bilirubin (0.2-1.3) mg/dL AST (17-59) U/L ALT (4-49) U/L Alkaline Phosphatase (38-126) U/L Troponin I <0.012 (0.000-0.034) ng/mL Total Protein (6.3-8.2) g/dL Albumin (3.5-5.0) g/dL Disposition Clinical Impression: Dizziness Disposition: LEFT AGAINST MEDICAL ADVICE Referrals: Ellen Fortune DO [Primary Care Provider] - 1-2 days
[2024-02-10 13:24] LABS: Basophils # (A) 0.1 k/uL (0-0.2); Basophils % (A) 1 %; Eosinophils # (A) 0.1 k/uL (0-0.7); Eosinophils % (A) 1 %; HCT 37.8 % (39.0-53.0); HGB 13.7 gm/dL (13.0-17.5); Lymphocytes # (A) 2.1 k/uL (1.0-4.8); Lymphocytes % (A) 19 %; MCH 31.1 pg (25.0-35.0); MCHC 36.4 g/dL (31.0-37.0); Mean Platelet Volume 6.9; Monocytes # (A) 0.8 k/uL (0-1.0); Monocytes % (A) 7 %; Neutrophils # (A) 7.6 k/uL (1.3-7.7); Neutrophils % (A) 71 %; Platelet Count 512 k/uL (150-450); RBC 4.42 m/uL (4.30-5.90); RDW 11.7 % (11.5-15.5); WBC 10.8 k/uL (3.8-10.6)
[2024-02-10 13:27] LABS: MCV 85.4 fL (80.0-100.0)
[2024-02-10 13:28] LABS: ALT 28 U/L (4-49); African American GFR (CKD) >90 (>60 ml/min/1.73 sqM); Anion Gap 15 mmol/L; Blood Urea Nitrogen 9 mg/dL (9-20); Calcium 9.3 mg/dL (8.4-10.2); Carbon Dioxide 14 mmol/L (22-30); Chloride 106 mmol/L (98-107); Glucose 102 mg/dL (74-99); Non-African American GFR(CKD) >90 (>60 ml/min/1.73 sqM); Sodium 135 mmol/L (137-145)
[2024-02-10 13:29] LABS: AST 35 U/L (17-59); Albumin 4.5 g/dL (3.5-5.0); Alkaline Phosphatase 116 U/L (38-126); Potassium 3.9 mmol/L (3.5-5.1); Total Bilirubin 1.5 mg/dL (0.2-1.3); Total Protein 7.3 g/dL (6.3-8.2)
[2024-02-10 13:48] LABS: Partial Thromboplastin Time 25.7 sec (22.0-30.0); Prothrombin Time 11.2 sec (10.0-12.5)
[2024-02-10 14:18] VITALS: PULSE 80; TEMP 98.1
--- NOTE | 2024-02-10 14:30 | XR ---
EXAMINATION TYPE: XR chest 2V DATE OF EXAM: 02/10/2024 COMPARISON: 01/26/2024 HISTORY: Chest pain TECHNIQUE: Frontal and lateral views of the chest are obtained. FINDINGS: There is a new cavitary mass right upper lobe measuring 3.9 x 3.9 cm which is felt to be infectious i n nature. Correlate for cavitary infiltrate and/or abscess. No evidence for pneumothorax. No pleural effusion. The cardiac silhouette size is within normal limits. The osseous structures are grossly intact. IMPRESSION: 1. There is a new cavitary mass right upper lobe measuring 3.9 x 3.9 cm which is felt to be infectio us in nature. Correlate for cavitary infiltrate and/or abscess.
== END 2024-02-10 14:20 | disposition left against medical advice (07) ==
LOC: EC 12:46
DX: R42 Dizziness and giddiness (principal); Z53.29 Procedure and treatment not carried out because of patient's decision for other reasons; F17.290 Nicotine dependence, other tobacco product, uncomplicated
CPT/HCPCS: 36415; 71046; 80053; 84484; 85025; 85610; 85730; 93005; 99284